=== PATIENT | male | born 1965 | race Caucasian/White ===

== ENCOUNTER 2016-10-05 19:13 | Emergency (ER) | payer MEDICAID ==
[~2016-10-05] VITALS: Ht 177.8 cm; Wt 81.6 kg
[2016-10-05] MEDS ORDERED: LIDOCAINE W/ EPINEPHRINE 1% 20ML VIAL ID ONE (20:15)
[2016-10-05] MEDS ORDERED: TETANUS-DIPTH-ACEL PERTUSSIS 0.5ML SYRG IM ONE (20:15)
[2016-10-05] MEDS ORDERED: cefTRIAXone 1GM/50ML D5W 50 ML IV ONE ×2 (20:15→21:30)
[2016-10-05] MEDS ORDERED: LIDOCAINE 2%HCL (LOCAL ANESTH.) INJ 20ML MDV ONE (20:16)
[2016-10-05] MEDS ORDERED: LIDOCAINE W/ EPINEPHRINE 1 % INJ 30ML ONE (20:36)
[2016-10-05] MEDS ORDERED: cefTRIAXone SOD 1,000 MG VL IM ONE (20:45)
[2016-10-05] MEDS ORDERED: BACITRACIN-POLYMYXIN B TOPICAL OINT UD TOP ONE (21:19)
[2016-10-05 21:30] VITALS: BP 128/72
== END 2016-10-05 22:32 | disposition home or self-care (01) ==
LOC: EDBD 19:13 → ER 19:25
DX: S01.81XA Laceration without foreign body of other part of head, initial encounter (principal); F12.10 Cannabis abuse, uncomplicated; V49.40XA Driver injured in collision with unspecified motor vehicles in traffic accident, initial encounter; Y93.89 Activity, other specified; Y99.8 Other external cause status; Y92.89 Other specified places as the place of occurrence of the external cause
CPT/HCPCS: 12015; 70450; 70486; 72125; 90715; 96365; 99285; G0434; J0696; J2001